=== PATIENT | male | born 2005 | race African-American/Black ===

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

== ENCOUNTER → 2023-08-13 | Outpatient (CLI) | payer SELFPAY | LOC: RAD 14:45 | DX: M79.641 Pain in right hand (principal) ==

== ENCOUNTER 2024-05-24 11:21 | Emergency (ER) | payer SELFPAY ==
[~2024-05-24] VITALS: Ht 170.2 cm; Wt 69.8 kg
[2024-05-24 11:27] VITALS: BP 135/96
== END 2024-05-24 12:10 | disposition home or self-care (01) ==
LOC: ED 11:21
DX: R07.81 Pleurodynia (principal)